=== PATIENT | male | born 1955 | race Caucasian/White ===

== ENCOUNTER → 2017-08-20 | Outpatient (CLI) | payer OTHER | END | disposition home or self-care (01) | LOC: GMAM 14:39 | PROVIDERS: ATTEND Family Medicine | DX: Z12.5 Encounter for screening for malignant neoplasm of prostate (principal); I10 Essential (primary) hypertension ==

== ENCOUNTER → 2018-02-10 | Outpatient (CLI) | payer OTHER | LOC: LAB.O 16:17 | PROVIDERS: ATTEND Nurse Practitioner Family | DX: T67.5XXA Heat exhaustion, unspecified, initial encounter (principal) ==

== ENCOUNTER → 2019-01-25 | Outpatient (CLI) | payer OTHER | LOC: GMAM 14:16 | PROVIDERS: ATTEND Family Medicine | DX: Z12.5 Encounter for screening for malignant neoplasm of prostate (principal); E78.2 Mixed hyperlipidemia; I10 Essential (primary) hypertension ==

== ENCOUNTER → 2020-04-12 | Outpatient (CLI) | payer MEDICARE, OTHER ==
--- NOTE | 2020-04-13 06:53 | CT ---
TECHNIQUE: Spiral CT images were obtained of the cervical spine. Sagittal and coronal reconstructions were also performed. This exam was performed according to our departmental dose-optimization program, which includes automated exposure control, adjustment of the mA and/or kV according to patient size and/or use of iterative reconstruction technique. CLINICAL HISTORY PROVIDED: RADICULOPATHY COMPARISON: None available. FINDINGS: Alignment: Straightening of the normal cervical lordosis. Minimal degenerative anterolisthesis C3 on C4. No acute subluxation. Fracture: No acute fracture. Degenerative Changes: Multilevel degenerative changes are present. Prevertebral / Paraspinal Soft Tissues: Unremarkable. C1/2: No significant abnormality. C2/3: Posterior disc space narrowing. Small symmetric disc bulge osteophyte complex. Bilateral facet and uncinate process hypertrophy. No definite stenosis. C3/4: Disc space narrowing with endplate degenerative change. Asymmetric left disc bulge osteophyte complex. Left greater than right facet and uncinate process hypertrophy. Mild right and severe left neural foraminal narrowing. No significant central canal stenosis. C4/5: Posterior disc space narrowing. Small symmetric disc bulge osteophyte complex. Left. Right facet and uncinate process hypertrophy. Severe left neural foraminal narrowing. No significant central canal stenosis. No right neural foraminal narrowing. C5/6: Posterior disc space narrowing. Small symmetric disc bulge osteophyte complex. Left greater than right facet and uncinate process hypertrophy. Severe left neural foraminal narrowing. Mild right neural foraminal narrowing. No significant central canal stenosis. C6/7: No significant abnormality. C7/T1: No significant abnormality. IMPRESSION: Multilevel cervical spondylosis most pronounced at C3-C6 as above. Electronically signed by: Jair Lea MD 04/13/2020 6:52 AM CDT
--- NOTE | 2020-04-13 06:57 | CT ---
TECHNIQUE: Axial images of the lumbar spine were obtained with multiple reconstructions provided. This exam was performed according to our departmental dose-optimization program, which includes automated exposure control, adjustment of the mA and/or kV according to patient size and/or use of iterative reconstruction technique. CLINICAL HISTORY PROVIDED: RADICULOPATHY COMPARISON: None available. FINDINGS: Five lumbar type vertebral bodies are present. 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 Alignment: Normal. No acute subluxation. Fracture: None present. Paraspinal Soft Tissues/ Retroperitoneum: No acute findings. L1/2: Posterior disc space narrowing. Bilateral facet hypertrophy. Mild bilateral neural foraminal narrowing. No significant central canal stenosis. L2/3: Posterior disc space narrowing. Small symmetric disc bulge. Mild bilateral neural foraminal narrowing. Bilateral facet hypertrophy. No significant central canal stenosis. L3/4: Posterior disc space narrowing. Diffuse symmetric disc bulge osteophyte complex. Moderate bilateral neural foraminal narrowing. Bilateral facet hypertrophy. No significant central canal stenosis. L4/5: Posterior disc space narrowing with a diffuse symmetric disc bulge. Moderate to severe bilateral neural foraminal narrowing. Mild central canal stenosis. Bilateral facet hypertrophy with thickening of the ligamentum flavum. L5/S1: Posterior disc space narrowing. Diffuse symmetric disc bulge. Moderate bilateral neural foraminal narrowing. No significant central canal stenosis. Bilateral facet hypertrophy. IMPRESSION: Multilevel lumbar spondylosis most pronounced at L4/L5. Electronically signed by: Jair Lea MD 04/13/2020 6:55 AM CDT
== END | disposition home or self-care (01) ==
LOC: CT 10:35
PROVIDERS: ATTEND Psychiatry & Neurology Neurology
DX: M54.12 Radiculopathy, cervical region (principal); M54.16 Radiculopathy, lumbar region

== ENCOUNTER 2020-05-08 05:25 | Day surgery (SDC) | payer MEDICARE, OTHER ==
[2020-05-08] MEDS ORDERED: BETAMETHASONE ACETATE/BETAMETH 6 MG/ML VIAL IM ONE (08:48)
[2020-05-08] MEDS ORDERED: DEXAMETHASONE INJ 10 MG/ML VIAL ONE (08:48)
[2020-05-08] MEDS ORDERED: LIDOCAINE 1% 10 ML VIAL INJ ONE ×3 (08:48→09:17)
[2020-05-08] MEDS ORDERED: BUPIVACAINE 0.5% 30 ML VIAL INJ ONE ×2 (08:48→09:18)
[2020-05-08] MEDS ORDERED: DEXAMETHASONE INJ 10 MG/ML VIAL IM ONE (09:17)
[2020-05-08] MEDS ORDERED: BUPIVACAINE 0.5% W/EPI 30 ML VIAL INJ ONE (09:18)
--- NOTE | 2020-05-09 08:28 | RAD ---
PROVIDED CLINICAL HISTORY/REASON FOR EXAM: TFESI INJECTION Findings/impression: One intraoperative fluoroscopic images. Please see operative note Dose: 4.76 mGy Time: 18.8 seconds Electronically signed by: Jair Lea MD 05/09/2020 8:27 AM CDT
== END 2020-05-08 10:42 | disposition home or self-care (01) ==
LOC: AMB 05:25
PROVIDERS: ATTEND Family Medicine Sports Medicine
DX: M54.5 Low back pain (principal); M51.16 Intervertebral disc disorders with radiculopathy, lumbar region; E78.2 Mixed hyperlipidemia; I10 Essential (primary) hypertension; G40.909 Epilepsy, unspecified, not intractable, without status epilepticus; K21.9 Gastro-esophageal reflux disease without esophagitis; Z87.891 Personal history of nicotine dependence; Z88.8 Allergy status to other drugs, medicaments and biological substances; Z79.899 Other long term (current) drug therapy
CPT/HCPCS: 64483; 76000; J1100

== ENCOUNTER → 2020-06-19 | Outpatient (CLI) | payer MEDICARE, OTHER | LOC: LAB.NP 11:07 | PROVIDERS: ATTEND Family Medicine | DX: Z12.5 Encounter for screening for malignant neoplasm of prostate (principal); I10 Essential (primary) hypertension; R56.9 Unspecified convulsions; R53.83 Other fatigue; E78.2 Mixed hyperlipidemia | CPT/HCPCS: 80185; 84403; 84439; 84443; G0103 ==